=== PATIENT | female | born 1985 ===

== ENCOUNTER → 2018-07-19 | Day surgery (SDC) | payer OTHER ==
[~2018-07-19] VITALS: Ht 175.3 cm; Wt 59.0 kg
[2018-07-19 06:26] VITALS: BP 131/72
[2018-07-19 12:27] VITALS: BP 120/57
== END | disposition home or self-care (01) ==
LOC: OR 07-12 08:30 → DS 06:06 → OR 07:30 → DS 07:30
PROVIDERS: Obstetrics & Gynecology
PROC: 0UPD7HZ Removal of Contraceptive Device from Uterus and Cervix, Via Natural or Artificial Opening (ICD-10-PCS; 2018-07-19)
PROC: 0UB70ZZ Excision of Bilateral Fallopian Tubes, Open Approach (ICD-10-PCS; principal; 2018-07-19 07:30)
DX: Z30.2 Encounter for sterilization (principal); Z30.432 Encounter for removal of intrauterine contraceptive device
CPT/HCPCS: J0330; J0690; J1170; J2175; J2250; J2405; J2704; J3010; J3490; J7120